=== PATIENT | male | born 1990 | race Caucasian/White ===

== ENCOUNTER → 2023-09-11 11:46 | Outpatient (CLI) | payer OTHER, SELFPAY ==
[2023-09-11 12:46] LABS: Hematocrit 49.3 % (41-53); Mean Corpuscular HGB Conc 34.6 % (30-36); Mean Corpuscular Hemoglobin 30.4 PG (26-34); Platelet Count 302 X10^3/uL (150-400); Red Cell Distribution Width 13.6 % (11.6-14.8); White Blood Cell Count 8.2 X10^3/uL (4.5-11.0)
[2023-09-11 13:04] LABS: Alanine Aminotransferase 24 IU/L (<50); Albumin 4.9 g/dL (3.5-5.0); Albumin Globulin Ratio 1.3 (1.0-2.8); Alkaline Phosphatase 84 U/L (38-126); Aspartate Aminotransferase 32 IU/L (17-59); BUN Creatinine Ratio 13.5 (6-22); Bilirubin Total 1.9 mg/dL (0.2-1.3); Blood Urea Nitrogen 13 mg/dL (9-20); Calcium 9.8 mg/dL (8.4-10.2); Carbon Dioxide 36 mmol/L (22-32); Chloride 102 mmol/L (98-107); Cholesterol 222 mg/dL (140-199); Estimated Glomerular Filt Rate > 60 mL/min (>60); Globulin 3.8 g/dL (1.7-4.1); Glucose 132 mg/dL (70-100); HDL Cholesterol 67 mg/dL (40-60); HEMOLYSIS < 15 (0-50); LDL Cholesterol Calculated 137 mg/dL (<100); Sodium 143 mmol/L (137-145); Total Protein 8.7 g/dL (6.3-8.2); Triglycerides 90 mg/dL (35-150)
[2023-09-11 13:26] LABS: Free T3, Triiodothyronine Free 4.07 pg/mL (2.77-5.27)
[2023-09-11 13:39] LABS: Thyroid Stimulating Hormone 0.972 uIU/mL (0.47-4.68)
[2023-09-11 14:54] LABS: Urine N gonorrhoeae NOT DETECTED
[2023-09-11 15:12] LABS: Urine Chlamydia NOT DETECTED
[2023-09-11 16:37] LABS: Microalbumin Urine Random 1.9 mg/dL (0-1.6)
[2023-09-11 16:58] LABS: Creatinine Urine Random 370.1 mg/dL; Microalbumi Creatinin Ratio Ur 5.1 ug/mg CR (<30)
[2023-09-12 06:33] LABS: HSV 2 IGG AB 1.22 index (0.00-0.90); RPR Screen Non Reactive (Non Reactive)
[2023-09-12 17:57] LABS: Hepatitis B Surface Antigen NEGATIVE s/c (NEGATIVE)
[2023-09-12 18:15] LABS: HIV 1 & 2 Ab/Ag 4th Gen Combo NEGATIVE (NEGATIVE); Hep C Virus Ab w/Reflex Quant NEGATIVE s/c (NEGATIVE)
== END ==
PROVIDERS: PCP Nurse Practitioner; Referring Provider Nurse Practitioner; Visit Provider Nurse Practitioner
DX: Z00.00 Encounter for general adult medical examination without abnormal findings (principal); Z11.3 Encounter for screening for infections with a predominantly sexual mode of transmission
CPT/HCPCS: 36415; 80053; 80061; 82043; 82570; 84439; 84443; 84481; 85027; 86592; 86695; 86696; 86803; 87340; 87389; 87491; 87591

== ENCOUNTER → 2023-09-19 07:58 | Outpatient (CLI) | payer OTHER, SELFPAY | LOC: CAR 07:58 | PROVIDERS: PCP Nurse Practitioner; Referring Provider Nurse Practitioner; Visit Provider Nurse Practitioner | DX: R00.2 Palpitations (principal) | CPT/HCPCS: 93246 ==